=== PATIENT | male | born 1970 | race African-American/Black ===

== ENCOUNTER 2020-07-17 19:25 | Emergency (ER) | payer OTHER ==
[~2020-07-17] VITALS: Ht 172.7 cm; Wt 86.0 kg
[2020-07-17] MEDS ORDERED: MORPHINE SULFATE 4 MG/ML CPJ (NOT FOR IM USE) IV ONE (19:45)
[2020-07-17] MEDS ORDERED: ONDANSETRON HCL 4MG/2ML INJ IV ONE (19:45)
[2020-07-17] MEDS ORDERED: LIDOCAINE HCL/PF 1% 10 MG/ML 5ML VIAL IJ ONE (19:45)
[2020-07-17] MEDS ORDERED: TETANUS, DIPHTHERIA, PERTUSSIS VAC/PF 0.5ML (>7YR OLD) IM ONE (19:45)
[2020-07-17] MEDS ORDERED: CEFAZOLIN 1000MG PREMIX 50 ML IV ONE (19:45)
[2020-07-17 22:53] VITALS: BP 162/82
== END 2020-07-17 23:08 | disposition home or self-care (01) ==
LOC: ER 19:25
DX: S61.210A Laceration without foreign body of right index finger without damage to nail, initial encounter (principal); S61.213A Laceration without foreign body of left middle finger without damage to nail, initial encounter; I49.9 Cardiac arrhythmia, unspecified; Y04.0XXA Assault by unarmed brawl or fight, initial encounter; Y93.89 Activity, other specified; Y92.89 Other specified places as the place of occurrence of the external cause; Y99.8 Other external cause status
CPT/HCPCS: 12001; 73130; 73140; 90471; 90715; 93005; 96365; 96375; 99284; J0690; J2270; J2405; J3490